=== PATIENT | male | born 1960 | race Caucasian/White ===

== ENCOUNTER → 2019-07-25 | Outpatient (CLI) | payer BC ==
--- NOTE | 2019-07-26 13:19 | CARD ---
MR#: [id number] Date of Study: 07/25/2019 Ordering Physician: EN HORTON, Referring Physician: EN HORTON, Tech: Gisella Sanchez APPROVED REPORT EXAM: Two-dimensional and M-mode echocardiogram with Doppler and color Doppler. Other Information Quality : AverageHR: 108bpm INDICATION Palpitations RISK FACTORS Hyperlipidemia Smoking 2D DIMENSIONS RVDd3.5 (2.9-3.5cm)Left Atrium(2D)3.4 (1.6-4.0cm) IVSd1.1 (0.7-1.1cm)Aortic Root(2D)3.3 (2.0-3.7cm) LVDd5.4 (3.9-5.9cm)LVOT Diameter2.2 (1.8-2.4cm) PWd1.0 (0.7-1.1cm)LVDs2.5 (2.5-4.0cm) FS (%) 53.9 %SV117.5 ml LVEF(%)84.4 (>50%) Aortic Valve AoV Peak Mik.143.3cm/sAoV VTI22.6cm AO Peak GR.8.2mmHgLVOT Peak Mik.105.1cm/s LVOT VTI 19.10cmAO Mean GR.5mmHg JEM (VMAX)1.52sm7NTU (VTI)3.14cm2 Mitral Valve MV E Tteprxur79.5cm/sMV DECEL EDOE466vz MV A Axckekdu29.6cm/sMV E Mean Gr.1mmHg MV FBP45pxQ/A Ratio0.7 MVA (PHT)3.09cm2 TDI E/Lateral E'8.9E/Medial E'7.3 Pulmonary Valve PV Peak Jtqhtshf75.0cm/sPV Peak Grad.3mmHg Tricuspid Valve TR P. Ikvzdqqi510hf/sRAP IAQEPQXZ2rgIj TR Peak Gr.66yaXsWUSK19qwCy Pulmonary Vein S1 Spbudruz43.8cm/sD2 Wwitzrpa59.7cm/s PVa hrzdajxn402jvey LEFT VENTRICLE The left ventricle is normal size. There is normal left ventricular wall thickness. The left ventricu lar systolic function is normal and the ejection fraction is within normal range. The Ejection Fracti on is 65-70%. There is normal LV segmental wall motion. Transmitral Doppler flow pattern is Grade I-a bnormal relaxation pattern. RIGHT VENTRICLE The right ventricle is normal size. There is normal right ventricular wall thickness. The right ventr icular systolic function is normal. ATRIA The left atrium size is normal. The right atrium size is normal. The interatrial septum is intact wit h no evidence for an atrial septal defect or patent foramen ovale as noted on 2-D or Doppler imaging. AORTIC VALVE The aortic valve is normal in structure and function. Doppler and Color Flow revealed no significant aortic regurgitation. There is no significant aortic valvular stenosis. MITRAL VALVE The mitral valve is normal in structure and function. There is no evidence of mitral valve prolapse. There is no mitral valve stenosis. Doppler and Color-flow revealed trace mitral regurgitation. TRICUSPID VALVE The tricuspid valve is normal in structure and function. Doppler and Color Flow revealed trace tricus pid regurgitation with an estimated PAP of 33 mmHg. There is no tricuspid valve stenosis. PULMONIC VALVE The pulmonic valve is not well visualized. Doppler and Color Flow revealed trace to mild pulmonic phylicia vular regurgitation. GREAT VESSELS The aortic root is normal in size. The IVC is normal in size and collapses >50% with inspiration. PERICARDIAL EFFUSION There is no evidence of significant pericardial effusion. Critical Notification Critical Value: No <Conclusion> Normal chamber sizes Normal aortic valve without stenosis Normal mitral valve without significant stenosis or regurgitation Normal tricuspid valve with mild mitral insufficiency Normal pulmonic valve with mild pulmonic regurgitation and without significant pulmonary hypertension Normal left ventricular cavity size and contractility No hemodynamically significant pericardial effusion Signed by : En Horton, Electronically Approved : 07/26/2019 13:19:16
== END | disposition home or self-care (01) ==
LOC: ECHO 13:38
PROVIDERS: ATTEND Internal Medicine
DX: I08.8 Other rheumatic multiple valve diseases (principal); E78.5 Hyperlipidemia, unspecified; F17.200 Nicotine dependence, unspecified, uncomplicated
CPT/HCPCS: 93306

== ENCOUNTER → 2020-05-28 | Outpatient (CLI) | payer BC ==
[~2020-05-28] MED LIST: ATOR10TA60 PO; FEBU40TA PO; FLUT9.9S NS; LOSA-73 PO; TADA5TAB PO
--- NOTE | 2020-05-30 10:47 | RAD ---
MR#: [id number] Date of Study: 05/28/2020 Ordering Physician: EN HARDIN, Referring Physician: GUCCI CONNOR Tech: RT Andrews (R) (N) APPROVED REPORT Test Type: Exercise Stress Nurse/Tech: Gorge Fitzgerald RN Test Indications: Chest Pain, Arrythmia Cardiac History: HTN, See EMR. Medications: See EMR. Medical History: X-Smoker quit in 2007, See EMR. Resting ECG: SR Resting Heart Rate: 72 bpm Resting Blood Pressure: 137/84mmHg Pretest Chest Pain: No chest pain Nurse/Tech Notes Lungs CTA, Heart tones regular. Consent: The procedure was explained to the patient in lay terms. Informed consent was witnessed. Rigo eout was entered into [facility]. History and Stress Test performed by RT Andrews (R) (N) Stress Symptoms Dizziness, light headed POST EXERCISE Reason for Termination: Reached target heart rate Target HR: Yes Max HR: 140 bpm 103% of Maximum Predicted HR: 136 bpm Exercise duration: 7:40 min:sec, Stage Exercise capacity: 10.0METs Max Blood Pressure: 153/81mmHg Blood Pressure response to exercise: Normal blood pressure response during stress. Heart Rate response to exercise: WNL Chest Pain: No. Arrhythmia: No. ST Change: No. INTERPRETATION Stress EKG Conclusion: No evidence of stress induced EKG changes. Imaging Protocol IMAGE PROTOCOL: Rest Tc-99m/stress Tc-99m 1 day Rest: Stress: Viability: Radiopharm.Tc99m HiadaaiocLn69i Sestamibi Dose8.3mCi 28mCi Duration 13min. 13min. Img Date 05/28/2020 05/28/2020 Inj-Img Wnvl27fcs. 60min. Post-Injection Exercise: 1 minute Rest Admin Site:IV - Left WristAdministrator:ELSA Mtz, ARRT (R)(N) Stress Admin Site: IV - Left WristAdministrator: RT Enrique Sparrow)(N) STRESS DATA End Diast. Vol.83.0mlLVEDV index BSA37.0ml End Syst. Vol.23.0mlLVESV index BSA10.0ml Myocardial Cofm288.0gEject. Dznpachm10.0% Stress Scores Regional WT2.00Summed WT11.00 Regional WM0.00Summed WM0.00 The rest and stress images show normal perfusion, normal contraction and thickening. LV Perf. Quant 17 Seg. SSS0.00 17 Seg. SRS0.00 17 Seg. SDS0.00 Stress Defect Extent (% LAD)0.00Rest Defect Extent (% LAD)0.00Rev. Defect Extent (% LAD)0.00 Stress Defect Extent (% LCX) 0.00Rest Defect Extent (% LCX)10.00Rev. Defect Extent (% LCX)0.00 Stress Defect Extent (% RCA)0.00Rest Defect Extent (% RCA)0.00Rev. Defect Extent (% RCA)0.00 Stress Defect Extent (% SERGIO)0.00Rest Defect Extent (% SERGIO)1.70Rev. Defect Extent (% SERGIO)0.00 Other Information Quality:Average Risk Assessment: Low Risk Conclusion 1. No evidence of EKG changes with stress testing. Normal exercise capacity with 10 mets achieved. 2. Normal perfusion at stress/rest. 3. Low risk study. 4. EF > 60%. Signed by : Galen Walsh, Electronically Approved : 05/30/2020 10:46:26
== END ==
LOC: NM 11:33
PROVIDERS: ATTEND Internal Medicine
DX: R07.89 Other chest pain (principal)
CPT/HCPCS: 78452; 93017; A9500